=== PATIENT | male | born 1955 | race Caucasian/White ===

== ENCOUNTER 2021-09-01 11:20 | Inpatient (IN) | payer MEDICARE ==
[~2021-09-01] VITALS: Ht 188 cm; Wt 104.8 kg
[~2021-09-01 11:20] MED LIST: PREDNISONE10 MG PO
[2021-09-01] MEDS ORDERED: FUROSEMIDE40 MG PO (15:20)
[2021-09-01] MEDS ORDERED: AMLODIPINE-BEN1 EAC5 PO (15:21)
[2021-09-01] MEDS ORDERED: XYZAL5 MG PO (15:22)
[2021-09-01 15:27] LABS: HEMOGLOBIN 14.1 gm/dl (14.0-17.5); RED BLOOD COUNT 4.8 M/UL (4.20-5.50)
[2021-09-01 15:55] LABS: BUN/CREATININE RATIO 29 (0-10)
[2021-09-02 04:06] LABS: WHITE BLOOD COUNT 18.6 K/UL (4.5-11.0)
[2021-09-02 04:11] LABS: RED BLOOD COUNT 4.14 M/UL (4.20-5.50)
[2021-09-02 04:29] LABS: BUN/CREATININE RATIO 27 (0-10)
[2021-09-02 14:46] LABS: RBC (MANUAL) 423; WBC (MANUAL) 97
[2021-09-02 14:47] LABS: RBC (MANUAL) 268; WBC (MANUAL) 81
[2021-09-02 14:48] LABS: BODY FLUID SOURCE BRONCH RIGHT LUNG
[2021-09-02 14:49] LABS: BODY FLUID SOURCE BRONCH LEFT LUNG
[2021-09-03 03:51] LABS: HEMOGLOBIN 11.9 gm/dl (14.0-17.5); RED BLOOD COUNT 4.07 M/UL (4.20-5.50); WHITE BLOOD COUNT 18.6 K/UL (4.5-11.0)
[2021-09-03 04:08] LABS: BUN/CREATININE RATIO 29 (0-10)
[2021-09-03] MEDS ORDERED: [UNRECOGNIZED DRUG - OTHER] (11:31)
[2021-09-03] MEDS ORDERED: ivermectin (11:31)
[2021-09-03 13:59] LABS: ADENOVIRUS F 40/41 Not Detected (Negative); ASTROVIRUS Not Detected (Negative); CAMPYLOBACTER Not Detected (Negative); CRYPTOSPORIDIUM Not Detected (Negative); E.COLI 0157 Not Detected (Negative); ENTAMOEBA HISTOLYTICA Not Detected (Negative); ENTEROAGGREGATIVE E.COLI (EAEC Not Detected (Negative); ENTEROPATHOGENIC E.COLI (EPEC) Not Detected (Negative); ENTEROTOXIGENIC E.COLI (ETEC) Not Detected (Negative); GIARDIA LAMBLIA Not Detected (Negative); NOROVIRUS GI/GII Not Detected (Negative); PLESIOMONAS SHIGELLOIDES Not Detected (Negative); ROTOVIRUS A Not Detected (Negative); SALMONELLA Not Detected (Negative); SAPOVIRUS Not Detected (Negative); SHIG/ENTEROINVAS.ECOLI (EIEC) Not Detected (Negative); SHIGA-LIK TOX.PRO.E.COLI (STEC Not Detected (Negative); VIBRIO Not Detected (Negative); VIBRIO CHOLERAE Not Detected (Negative); YERSINIA ENTEROCOLITICA Not Detected (Negative)
[2021-09-03 15:14] LABS: % CD 4 POS. LYMPH. 47.9 % (30.8-58.5); % CD 8 POS. LYMPH. 11.9 % (12.0-35.5); ABS. CD 8 SUPPRESSOR 83 /uL (109-897); ABSOLUTE CD 4 HELPER 335 /uL (359-1519); BASO (ABSOLUTE) 0.1 x10E3/uL (0.0-0.2); BASOS 1 % (Not Estab.); CD4/CD8 RATIO 4.03 (0.92-3.72); EOS 1 % (Not Estab.); EOS (ABSOLUTE) 0.3 x10E3/uL (0.0-0.4); HEMOGLOBIN 13.5 g/dL (13.0-17.7); IMMATURE GRANS (ABS) 0.4 x10E3/uL (0.0-0.1); IMMATURE GRANULOCYTES 2 % (Not Estab.); LYMPHS 4 % (Not Estab.); LYMPHS (ABSOLUTE) 0.7 x10E3/uL (0.7-3.1); MCH 28.5 pg (26.6-33.0); MCHC 32.1 g/dL (31.5-35.7); MCV 89 fL (79-97); MONOCYTES 7 % (Not Estab.); MONOCYTES(ABSOLUTE) 1.3 x10E3/uL (0.1-0.9); NEUTROPHILS 85 % (Not Estab.); NEUTROPHILS (ABSOLUTE) 16.9 x10E3/uL (1.4-7.0); PLATELETS 394 x10E3/uL (150-450); RBC 4.74 x10E6/uL (4.14-5.80); RDW 13.1 % (11.6-15.4); WBC 19.7 x10E3/uL (3.4-10.8)
[2021-09-04 04:32] LABS: HEMOGLOBIN 11.3 gm/dl (14.0-17.5); RED BLOOD COUNT 3.96 M/UL (4.20-5.50); WHITE BLOOD COUNT 16.1 K/UL (4.5-11.0)
[2021-09-04 05:12] LABS: BUN/CREATININE RATIO 24 (0-10)
[2021-09-04 09:18] LABS: HEMOGLOBIN 11.8 gm/dl (14.0-17.5); RED BLOOD COUNT 4.06 M/UL (4.20-5.50); WHITE BLOOD COUNT 16.9 K/UL (4.5-11.0)
[2021-09-04] MEDS ORDERED: METRONIDAZOLE (11:52)
[2021-09-04] MEDS ORDERED: MEROPENEM (11:52)
[2021-09-04] MEDS ORDERED: lovenox (11:54)
--- NOTE | 2021-09-04 14:20 | NUR ---
PER DR. FLOWERS THE PATIENT WAS PLACED IN DROPLET PRECAUTIONS ON 09/04/21. HIS FAMILY HAS REMAINED AT BEDSIDE SINCE ADMISSION AND WISHED TO STAY AT THIS TIME. THEY HAVE BEEN EDUCATED ON THE POTENTIAL RISKS ASSOCIATED WITH REMAINING WITH THE PATIENT GIVEN THE UNCERTAINTY OF HIS DISEASE. HIS AND DAUGHTERS HAVE AKNOWLEDGED THAT THEY UNDERSTAND AND ACCEPT THE RISK AND WISH TO REMAIN IN THE ROOM.
[2021-09-04 14:38] LABS: BODY FLUID SOURCE BRONCH LEFT LUNG
[2021-09-04 15:15] LABS: BORDETELLA PARAPERTUSSIS Not Detected (Not Detectd); BORDETELLA PERTUSSIS Not Detected (Not Detectd); CHLAMYDIA PNEUMONIAE Not Detected (Not Detectd); CORONAVIRUS HKU1 Not Detected (Not Detectd); CORONAVIRUS NL63 Not Detected (Not Detectd); CORONAVIRUS OC43 Not Detected (Not Detectd); CORONOAVIRUS 229E Not Detected (Not Detectd); HUMAN METAPNEUMOVIRUS Not Detected (Not Detectd); HUMAN RHINOVIRUS/ENTEROVIRUS Not Detected (Not Detectd); INFLUENZA A Not Detected (Not Detectd); INFLUENZA B Not Detected (Not Detectd); MYCOPLASMA PNEUMONIAE Not Detected (Not Detectd); PARAINFLUENZA VIRUS 1 Not Detected (Not Detectd); PARAINFLUENZA VIRUS 2 Not Detected (Not Detectd); PARAINFLUENZA VIRUS 3 Not Detected (Not Detectd); PARAINFLUENZA VIRUS 4 Not Detected (Not Detectd); RESPIRATORY SYNCYTIAL VIRUS Not Detected (Not Detectd)
[2021-09-04 16:15] LABS: ORGANISM ID Not indicated. (.); SPECIMEN SOURCE Urine (.); STREPTOCOCCUS PNEUMONIAE AG Negative (Negative)
[2021-09-04 17:42] LABS: SARS-CoV-2 NOT DETECTED (Not Detectd)
[2021-09-05 03:37] LABS: BUN/CREATININE RATIO 27 (0-10)
[2021-09-05 03:44] LABS: HEMOGLOBIN 11.4 gm/dl (14.0-17.5); RED BLOOD COUNT 3.89 M/UL (4.20-5.50)
[2021-09-05 08:14] LABS: HIV AB/P24 AG SCREEN Non Reactive (Non Reactive)
--- NOTE | 2021-09-05 09:43 | NUR ---
DR. KIMBROUGH PERFORMED BEDSIDE BRONCHOSCOPY. CONSENT OBTAIN FROM WITH MD AT BEDSIDE. SEE MD NOTE ABOUT PROCEDURE. PT TOLERATED WELL. VSS.
[2021-09-07 13:09] LABS: % CD 4 POS. LYMPH. 57.8 % (30.8-58.5); % CD 8 POS. LYMPH. 9.4 % (12.0-35.5); ABS. CD 8 SUPPRESSOR 28 /uL (109-897); ABSOLUTE CD 4 HELPER 173 /uL (359-1519); BASO (ABSOLUTE) 0.1 x10E3/uL (0.0-0.2); BASOS 0 % (Not Estab.); CD4/CD8 RATIO 6.15 (0.92-3.72); EOS 0 % (Not Estab.); EOS (ABSOLUTE) 0.1 x10E3/uL (0.0-0.4); HEMATOCRIT 34.7 % (37.5-51.0); HEMOGLOBIN 11.4 g/dL (13.0-17.7); IMMATURE GRANS (ABS) 0.4 x10E3/uL (0.0-0.1); IMMATURE GRANULOCYTES 2 % (Not Estab.); LYMPHS 1 % (Not Estab.); LYMPHS (ABSOLUTE) 0.3 x10E3/uL (0.7-3.1); MCH 28.8 pg (26.6-33.0); MCHC 32.9 g/dL (31.5-35.7); MCV 88 fL (79-97); MONOCYTES 3 % (Not Estab.); MONOCYTES(ABSOLUTE) 0.7 x10E3/uL (0.1-0.9); NEUTROPHILS 94 % (Not Estab.); NEUTROPHILS (ABSOLUTE) 20.8 x10E3/uL (1.4-7.0); PLATELETS 284 x10E3/uL (150-450); RBC 3.96 x10E6/uL (4.14-5.80); RDW 13.1 % (11.6-15.4); WBC 22.3 x10E3/uL (3.4-10.8)
[2021-09-07 15:09] LABS: ANTI-CENTROMERE B ANTIBODIES <0.2 AI (0.0-0.9); ANTI-DNA (DS) AB QN <1 IU/mL (0-9); ANTI-JO-1 <0.2 AI (0.0-0.9); ANTICHROMATIN ANTIBODIES <0.2 AI (0.0-0.9); ANTIRIBOSOMAL P ANTIBODIES <0.2 AI (0.0-0.9); ANTISCLERODERMA-70 ANTIBODIES <0.2 AI (0.0-0.9); RNP ANTIBODIES <0.2 AI (0.0-0.9); SJOGREN'S ANTI-SS-B <0.2 AI (0.0-0.9); SMITH ANTIBODIES <0.2 AI (0.0-0.9); SMITH/RNP ANTIBODIES <0.2 AI (0.0-0.9)
[2021-09-07 16:10] LABS: ASPERGILLUS FUMIGATUS IGG Negative (Negative); AUREOBASIDIUM PULLULANS IGG Negative (Negative); MICROPOLYSPORA FAENI IGG Negative (Negative); PIGEON SERUM IGG Negative (Negative); THERMOACTINOMYCES SACCHARI IGG Negative (Negative); THERMOACTINOMYCES VULGARIS IGG Negative (Negative)
[2021-09-09 12:14] LABS: FUNGITELL, SERUM <31 pg/mL (<80)
[2021-09-09 23:07] LABS: HISTOPLASMA MYCELIAL CF AB. Negative (Neg:<1:2); HISTOPLASMA MYCELIAL ID AB. Negative (Negative)
== END 2021-09-06 03:48 | disposition short-term general hospital (02) | DRG 853 ==
LOC: EXRD 11:20 → CCU 14:51
PROVIDERS: Internal Medicine; ADMIT Internal Medicine Pulmonary Disease
PROC: 0BD68ZX Extraction of Right Lower Lobe Bronchus, Via Natural or Artificial Opening Endoscopic, Diagnostic (ICD-10-PCS; 2021-09-02)
PROC: 0B9F8ZX Drainage of Right Lower Lung Lobe, Via Natural or Artificial Opening Endoscopic, Diagnostic (ICD-10-PCS; 2021-09-02)
PROC: 0B9J8ZX Drainage of Left Lower Lung Lobe, Via Natural or Artificial Opening Endoscopic, Diagnostic (ICD-10-PCS; principal; 2021-09-02 10:30)
PROC: 5A09357 Assistance with Respiratory Ventilation, Less than 24 Consecutive Hours, Continuous Positive Airway Pressure (ICD-10-PCS; 2021-09-03)
PROC: 5A0935A Assistance with Respiratory Ventilation, Less than 24 Consecutive Hours, High Flow/Velocity Cannula (ICD-10-PCS; 2021-09-03)
PROC: 0W3Q8ZZ Control Bleeding in Respiratory Tract, Via Natural or Artificial Opening Endoscopic (ICD-10-PCS; 2021-09-04)
PROC: 0BBB8ZX Excision of Left Lower Lobe Bronchus, Via Natural or Artificial Opening Endoscopic, Diagnostic (ICD-10-PCS; 2021-09-04)
PROC: 0BB68ZX Excision of Right Lower Lobe Bronchus, Via Natural or Artificial Opening Endoscopic, Diagnostic (ICD-10-PCS; 2021-09-04)
PROC: 5A09357 Assistance with Respiratory Ventilation, Less than 24 Consecutive Hours, Continuous Positive Airway Pressure (ICD-10-PCS; 2021-09-04)
PROC: 0BH17EZ Insertion of Endotracheal Airway into Trachea, Via Natural or Artificial Opening (ICD-10-PCS; 2021-09-04)
PROC: 5A1945Z Respiratory Ventilation, 24-96 Consecutive Hours (ICD-10-PCS; 2021-09-04)
PROC: 0BCM8ZZ Extirpation of Matter from Bilateral Lungs, Via Natural or Artificial Opening Endoscopic (ICD-10-PCS; 2021-09-05)
DX: A41.9 Sepsis, unspecified organism (principal); J18.9 Pneumonia, unspecified organism; J96.01 Acute respiratory failure with hypoxia; Z20.822 Contact with and (suspected) exposure to COVID-19; J84.9 Interstitial pulmonary disease, unspecified; J90 Pleural effusion, not elsewhere classified; D84.9 Immunodeficiency, unspecified; J95.61 Intraoperative hemorrhage and hematoma of a respiratory system organ or structure complicating a respiratory system procedure; I10 Essential (primary) hypertension; E87.6 Hypokalemia; Y83.8 Other surgical procedures as the cause of abnormal reaction of the patient, or of later complication, without mention of misadventure at the time of the procedure; E83.42 Hypomagnesemia; Z98.890 Other specified postprocedural states; Z87.891 Personal history of nicotine dependence; Z82.49 Family history of ischemic heart disease and other diseases of the circulatory system; Z72.89 Other problems related to lifestyle
CPT/HCPCS: 36415; 36600; 71045; 71046; 71250; 76000; 76705; 80048; 80053; 81001; 82785; 82803; 83036; 83516; 83605; 83615; 83735; 83880; 84100; 84450; 84460; 84484; 85025; 85027; 85610; 85652; 86140; 86331; 86360; 86602; 86609; 86612; 86671; 86682; 86698; 87015; 87040; 87070; 87077; 87081; 87086; 87116; 87177; 87205; 87206; 87209; 87252; 87278; 87389; 87507; 87633; 87899; 89051; 93005; 94002; 94003; 94640; 94660; 94664; 94760; C9113; J0456; J0696; J1100; J1650; J1940; J2185; J2250; J2405; J2704; J3010; J3370; J7030; J7040; J7070; U0002